=== PATIENT | male | born 1955 | race Caucasian/White ===

== ENCOUNTER 2018-10-28 09:38 | Day surgery (SDC) | payer OTHER ==
[2018-10-26 16:40] VITALS: BMI 33.9
[2018-10-28] MEDS ORDERED: LIDOCAINE HCL/PF 2% SDV 5ML VIAL ONE (11:03)
[2018-10-28] MEDS ORDERED: PROPOFOL 20 ML ONE ×6 (11:03→11:50)
[2018-10-28 17:43] VITALS: TEMP 98.2
[2018-10-28 17:48] VITALS: BP 118/80; PULSE 77
--- NOTE | 2018-11-06 15:50 | PATH ---
Surgical Pathology Report Patient Name: MARY CLEMENTE Med. Rec. #: [id number] /Age/Gender: 1955 (Age: 63) / M Account: [id number] Location: [facility] Taken: 10/28/2018 Received: 10/28/2018 Reported: 11/06/2018 Physicians: Kim Resendez M.D. Specimen(s) Received A: POLYPECTOMY PROXIMAL TRANSVERSE COLON B: POLYP PROXIMAL TRANSVERSE COLON 5-6 mm C: POLYPECTOMY JUNCTIONAL OF ASCENDING COLON & CECUM Clinical History Screening, Polyps Final Diagnosis A. proximal transverse colon, polyp, hot snare polypectomy: Tubular adenoma. B. proximal transverse colon 5-6 mm, polyp, biopsy : Tubular adenoma. C. junction of Ascending colon and cecum, polyp, hot snare polypectomy: Tubular adenoma with high-grade dysplasia. (See note). Note: Case discussed with Dr. Resendez on 11/03/18. Electronically Signed Maria Eugenia Drew M.D. Gross Description A. Received in formalin, labeled "hot snare polypectomy, proximal transverse colon" is a koch, irregular portion of soft tissue measuring 0.3 cm. in greatest dimension. The specimen is submitted in toto in one cassette. B. Received in formalin, labeled "polyp proximal transverse colon 5-6 mm" are four koch, irregular portions of soft tissue ranging from 0.1-0.2 cm. in greatest dimension. The specimens are submitted in toto in one cassette. C. Received in formalin, labeled, "hot snare polypectomy junction of ascending colon and cecum" are three portions of dark koch polyp ranging from 0.5-1.2 cm in greatest dimension. No definite stalk is identified. Entirely submitted in two cassettes with the largest polypoid fragment trisected( #2). AE/10/29/2018 ebram/10/29/2018
== END 2018-10-28 13:37 | disposition home or self-care (01) ==
LOC: FASU-ENDO 09:38
PROVIDERS: ATTEND Internal Medicine Gastroenterology
PROC: 0DBL8ZX Excision of Transverse Colon, Via Natural or Artificial Opening Endoscopic, Diagnostic (ICD-10-PCS; 2018-10-28)
PROC: 0DBL8ZX Excision of Transverse Colon, Via Natural or Artificial Opening Endoscopic, Diagnostic (ICD-10-PCS; 2018-10-28)
PROC: 0DBK8ZX Excision of Ascending Colon, Via Natural or Artificial Opening Endoscopic, Diagnostic (ICD-10-PCS; principal; 2018-10-28 11:12)
DX: Z12.11 Encounter for screening for malignant neoplasm of colon (principal); K57.30 Diverticulosis of large intestine without perforation or abscess without bleeding; D12.2 Benign neoplasm of ascending colon; D12.3 Benign neoplasm of transverse colon; K64.8 Other hemorrhoids
CPT/HCPCS: 88305-TC

== ENCOUNTER 2019-01-20 10:41 | Day surgery (SDC) | payer OTHER ==
[2019-01-18 12:14] VITALS: BMI 33.9
[2019-01-20] MEDS ORDERED: PROPOFOL 20 ML ONE ×2 (10:54)
[2019-01-20 12:21] VITALS: TEMP 98
[2019-01-20 12:46] VITALS: BP 134/76; PULSE 67
--- NOTE | 2019-01-22 15:45 | PATH ---
Surgical Pathology Report Patient Name: MARY CLEMENTE Med. Rec. #: [id number] /Age/Gender: 1955 (Age: 63) / M Account: [id number] Location: [facility] Taken: 01/20/2019 Received: 01/20/2019 Reported: 01/22/2019 Physicians: Kim Resendez M.D. Specimen(s) Received A: POLYPECTOMY PROXIMAL TRANSVERSE COLON B: POLYPECTOMY TRANSVERSE COLON Clinical History Surveillance colonoscopy Postoperative diagnosis: Colon polyps, diverticulosis Final Diagnosis A. PROXIMAL TRANSVERSE COLON, POLYPECTOMY: TUBULAR ADENOMA. NO HIGH GRADE DYSPLASIA IDENTIFIED. B. TRANSVERSE COLON, POLYPECTOMY: TUBULAR ADENOMA. Electronically Signed Kim Weiss M.D. Gross Description A. Received in formalin labeled "polypectomy proximal transverse," is a 1.5 x 1.1 x 0.6 cm koch, polypoid portion of soft tissue. The specimen is bisected and entirely submitted in one cassette. B. Received in formalin, labeled "polypectomy transverse colon" are 4 koch, irregular to polypoid portions of soft tissue ranging from 0.2-1.0 cm. in greatest dimension. The specimens are submitted in toto in one cassette. 01/21/201901/21/2019
== END 2019-01-20 12:45 | disposition home or self-care (01) ==
LOC: FASU-ENDO 10:41
PROVIDERS: ATTEND Internal Medicine Gastroenterology
PROC: 0DBL8ZX Excision of Transverse Colon, Via Natural or Artificial Opening Endoscopic, Diagnostic (ICD-10-PCS; principal; 2019-01-20 11:19)
DX: Z09 Encounter for follow-up examination after completed treatment for conditions other than malignant neoplasm (principal); Z86.010 Personal history of colon polyps; K57.30 Diverticulosis of large intestine without perforation or abscess without bleeding; D12.3 Benign neoplasm of transverse colon; K64.8 Other hemorrhoids; I10 Essential (primary) hypertension; F03.90 Unspecified dementia, unspecified severity, without behavioral disturbance, psychotic disturbance, mood disturbance, and anxiety; F20.9 Schizophrenia, unspecified; D69.6 Thrombocytopenia, unspecified; D50.9 Iron deficiency anemia, unspecified; F31.9 Bipolar disorder, unspecified
CPT/HCPCS: 88305-TC

== ENCOUNTER 2021-11-20 17:14 | Emergency (ER) | payer OTHER ==
[2021-11-20] MEDS ORDERED: SODIUM CHLORIDE 1,000 ML IV STA ×2 (18:02→20:36)
[2021-11-20 18:08] VITALS: BMI 36.6
[2021-11-20 18:39] LABS: BASO % 0.2 % (0-2.0); EOS % 0.4 % (0-4.5); HEMATOCRIT 35.4 % (35.4-49); HEMOGLOBIN 11.8 GM/dL (11.7-16.9); LYMPH % 15.4 % (8-40); MCH 31.6 pg (25.7-33.7); MCHC 33.2 g/dl (32.0-35.9); MEAN CELL VOLUME 95.3 fl (80-96); MEAN PLT VOLUME 8.5 fl (7.5-11.1); MONO % 5.8 % (3.8-10.2); NEUT % 78.2 % (42.8-82.8); PLATELET COUNT 104 10^3/uL (134-434); RBC 3.72 M/mm3 (4.00-5.60); RDW 15.6 % (11.9-15.9); WHITE BLOOD COUNT 7.1 K/mm3 (4.0-10.0)
[2021-11-20 18:47] LABS: INR 1.18 (0.83-1.09); PROTHROMBIN TIME (PATIENT) 13.6 SEC (9.7-13.0)
[2021-11-20 18:49] LABS: ACTIVATED PTT 26.1 SECONDS (25.2-36.5)
[2021-11-20] MEDS ORDERED: ACETAMINOPHEN 1000 MG/100 ML BAG IVPB ONE (19:24)
[2021-11-20] MEDS ORDERED: ACETAMINOPHEN INJECTION 100 ML IVPB ONE (19:29)
[2021-11-20 19:54] LABS: CALCIUM 8.8 mg/dL (8.5-10.1)
[2021-11-20 19:55] LABS: ALBUMIN 3.8 g/dl (3.4-5.0)
[2021-11-20 19:58] LABS: CREATININE 1.5 mg/dL (0.55-1.3)
[2021-11-20 19:59] LABS: BILIRUBIN,TOTAL 0.6 mg/dL (0.2-1); TOT PROT 6.5 g/dl (6.4-8.2)
[2021-11-20] MEDS ORDERED: ONDANSETRON 4 MG/2 ML VIAL IVPUSH ONE (20:33)
[2021-11-20] MEDS ORDERED: ONDANSETRON 4 MG/2 ML VIAL ONE (20:35)
[2021-11-21 00:03] LABS: BASO % 0.1 % (0-2.0); HEMATOCRIT 27.4 % (35.4-49); HEMOGLOBIN 9.1 GM/dL (11.7-16.9); LYMPH % 8.1 % (8-40); MCH 31.7 pg (25.7-33.7); MCHC 33.3 g/dl (32.0-35.9); MEAN CELL VOLUME 95.4 fl (80-96); MEAN PLT VOLUME 7.7 fl (7.5-11.1); MONO % 5.8 % (3.8-10.2); PLATELET COUNT 151 10^3/uL (134-434); RBC 2.88 M/mm3 (4.00-5.60); RDW 15.8 % (11.9-15.9); WHITE BLOOD COUNT 11.5 K/mm3 (4.0-10.0)
[2021-11-21 01:11] VITALS: RESP 20
[2021-11-21 02:10] VITALS: BP 122/82; PULSE 113; TEMP 97.8
== END 2021-11-21 02:10 | disposition short-term general hospital (02) ==
LOC: JER 17:14
PROC: 3E033GC Introduction of Other Therapeutic Substance into Peripheral Vein, Percutaneous Approach (ICD-10-PCS; principal; 2021-11-20)
DX: R55 Syncope and collapse (principal)
CPT/HCPCS: 36415; 36430; 70450-TC; 71046-TC-FY; 71275-TC; 72125-TC; 72170-TC-FY; 73030-TC-LT-FY; 74176-TC; 80053; 84484; 85025; 85379; 85610; 85730; 86850; 86900; 86901; 86922; 93005; 93010; 99285-25; C9803-CS; P9058; Q9967; U0003; U0005

== ENCOUNTER 2022-11-23 18:44 | Inpatient (IN) | payer OTHER ==
[2022-11-23 18:51] VITALS: BMI 32.5
[2022-11-23] MEDS ORDERED: LIDOCAINE 5% TOPICAL PATCH TP ONE (19:43)
[2022-11-23] MEDS ORDERED: LIDOCAINE 4% PATCH TP ONE (19:51)
[2022-11-23 20:30] LABS: BASO % 0.2 % (0-2.0); EOS % 0.1 % (0-4.5); HEMATOCRIT 21.9 % (35.4-49); LYMPH % 6.4 % (8-40); MCH 22.3 pg (25.7-33.7); MCHC 31.3 g/dl (32.0-35.9); MEAN CELL VOLUME 71.3 fl (80-96); MEAN PLT VOLUME 7.8 fl (7.5-11.1); MONO % 5.8 % (3.8-10.2); NEUT % 87.5 % (42.8-82.8); PLATELET COUNT 152 10^3/uL (134-434); RBC 3.07 M/mm3 (4.00-5.60); RDW 17.3 % (11.9-15.9); WHITE BLOOD COUNT 6.1 K/mm3 (4.0-10.0)
[2022-11-23 20:33] LABS: HEMOGLOBIN 6.8 GM/dL (11.7-16.9)
[2022-11-23 20:47] LABS: POTASSIUM 4.2 mmol/L (3.5-5.1)
[2022-11-23 20:50] LABS: ALBUMIN 3.5 g/dl (3.4-5.0); BLOOD UREA NITROGEN 13.1 mg/dL (7-18); CALCIUM 8.1 mg/dL (8.5-10.1)
[2022-11-23 20:53] LABS: CREATININE 1.2 mg/dL (0.55-1.3)
[2022-11-23 20:55] LABS: BILIRUBIN,TOTAL 0.4 mg/dL (0.2-1)
[2022-11-23] MEDS ORDERED: ACETAMINOPHEN 500 MG TABLET (FP) PO ONE (20:59)
[2022-11-23 21:13] LABS: INR 1.06 (0.83-1.09); PROTHROMBIN TIME (PATIENT) 12.3 SEC (9.7-13.0)
[2022-11-23] MEDS ORDERED: ACETAMINOPHEN 500 MG TABLET (FP) ONE (21:13)
[2022-11-23 21:16] LABS: ACTIVATED PTT 21.8 SECONDS (25.2-36.5)
[2022-11-23] MEDS ORDERED: morphine CARPU-JECT 4 MG/1 ML DISP.SYRIN IVPUSH ONE (23:34)
[2022-11-23] MEDS ORDERED: morphine SULFATE 4 MG/ML VIAL ONE (23:38)
[2022-11-24] MEDS ORDERED: SENNOSIDES 8.6MG TABLET (FP) PO PRN (01:39)
[2022-11-24 06:04] LABS: BASO % 0.2 % (0-2.0); EOS % 0.2 % (0-4.5); HEMATOCRIT 23.3 % (35.4-49); HEMOGLOBIN 7.4 GM/dL (11.7-16.9); LYMPH % 12.4 % (8-40); MCH 23.2 pg (25.7-33.7); MCHC 31.6 g/dl (32.0-35.9); MEAN CELL VOLUME 73.5 fl (80-96); MEAN PLT VOLUME 7.7 fl (7.5-11.1); NEUT % 79.2 % (42.8-82.8); PLATELET COUNT 152 10^3/uL (134-434); RBC 3.17 M/mm3 (4.00-5.60); RDW 17.7 % (11.9-15.9); WHITE BLOOD COUNT 5.9 K/mm3 (4.0-10.0)
[2022-11-24 06:25] LABS: POTASSIUM 4.5 mmol/L (3.5-5.1)
[2022-11-24 06:28] LABS: BLOOD UREA NITROGEN 11.2 mg/dL (7-18); MAGNESIUM 1.9 mg/dL (1.8-2.4)
[2022-11-24 06:32] LABS: CREATININE 1.1 mg/dL (0.55-1.3)
[2022-11-24] MEDS ORDERED: LIDOCAINE PATCH REMOVAL MC SCH (08:00)
[2022-11-24] MEDS ORDERED: ACETAMINOPHEN 1000 MG/100 ML BAG IVPB PRN (08:21)
[2022-11-24] MEDS: TAMSULOSIN HCL 0.4 MG CAP PO SCH (08:30)
[2022-11-24] MEDS: PANTOPRAZOLE 20 MG TABLET PO SCH (08:30)
[2022-11-24] MEDS ORDERED: LIDOCAINE 4% PATCH TP ONE (08:31)
[2022-11-24 09:50] LABS: PHOSPHOROUS 2.7 mg/dL (2.5-4.9)
[2022-11-24] MEDS ORDERED: BISACODYL 5 MG PO SCH (10:00)
[2022-11-24] MEDS ORDERED: HYDROCHLOROTHIAZIDE 25 MG TABLET (FP) PO SCH (10:00)
[2022-11-24] MEDS ORDERED: FOLIC ACID 1 MG TABLET (FP) PO SCH (10:00)
[2022-11-24] MEDS: THIAMINE HCL 100 MG TABLET (FP) PO SCH (10:10)
[2022-11-24] MEDS: FERROUS SO4 325 MG TABLET (FP) PO SCH (10:10)
[2022-11-24] MEDS: FOLIC ACID 1 MG TABLET (FP) PO SCH (10:10)
[2022-11-24] MEDS: LISINOPRIL 10 MG TABLET PO SCH (10:10)
[2022-11-24] MEDS ORDERED: ACETAMINOPHEN 325 MG TABLET (FP) PO PRN (11:50)
[2022-11-24] MEDS ORDERED: IRON SUCROSE INJECTION 200 MG in SODIUM CHLORIDE 90 ML IVPB ONE (12:30)
[2022-11-24] MEDS ORDERED: ACETAMINOPHEN INJECTION 100 ML IVPB ONE (13:11)
[2022-11-24] MEDS ORDERED: oxyCODONE HCL 5 MG TABLET ONE (16:45)
[2022-11-24] MEDS: oxyCODONE HCL 5 MG TABLET PO PRN (16:50)
[2022-11-24 17:05] LABS: BASO % 0.3 % (0-2.0); EOS % 0.3 % (0-4.5); HEMATOCRIT 26.3 % (35.4-49); HEMOGLOBIN 8.6 GM/dL (11.7-16.9); MCH 23.2 pg (25.7-33.7); MCHC 32.6 g/dl (32.0-35.9); MEAN CELL VOLUME 71.2 fl (80-96); MEAN PLT VOLUME 7.2 fl (7.5-11.1); MONO % 8.2 % (3.8-10.2); NEUT % 78.2 % (42.8-82.8); PLATELET COUNT 184 10^3/uL (134-434); RBC 3.69 M/mm3 (4.00-5.60); RDW 18.4 % (11.9-15.9); WHITE BLOOD COUNT 7.2 K/mm3 (4.0-10.0)
[2022-11-24] MEDS: morphine SULFATE 4 MG/ML VIAL IVPUSH PRN (20:42)
[2022-11-24] MEDS: MELATONIN 5 MG TABLETS PO SCH (21:13)
[2022-11-24] MEDS: BISACODYL 5 MG TABLET.DR (FP) PO SCH (21:14)
[2022-11-25] MEDS: oxyCODONE HCL 5 MG TABLET PO PRN ×3 (01:07→20:44)
[2022-11-25] MEDS: morphine SULFATE 4 MG/ML VIAL IVPUSH PRN ×3 (04:22→22:01)
[2022-11-25] MEDS: PANTOPRAZOLE 20 MG TABLET PO SCH (06:05)
[2022-11-25 07:38] LABS: BASO % 0.3 % (0-2.0); EOS % 0.3 % (0-4.5); HEMATOCRIT 24.9 % (35.4-49); HEMOGLOBIN 7.9 GM/dL (11.7-16.9); LYMPH % 12.2 % (8-40); MCHC 31.6 g/dl (32.0-35.9); MEAN CELL VOLUME 72.8 fl (80-96); MONO % 9.7 % (3.8-10.2); NEUT % 77.5 % (42.8-82.8); PLATELET COUNT 177 10^3/uL (134-434); RBC 3.42 M/mm3 (4.00-5.60); RDW 18.6 % (11.9-15.9); WHITE BLOOD COUNT 7.7 K/mm3 (4.0-10.0)
[2022-11-25 07:55] LABS: POTASSIUM 4.3 mmol/L (3.5-5.1)
[2022-11-25 08:01] LABS: ALBUMIN 3.4 g/dl (3.4-5.0); BLOOD UREA NITROGEN 13.3 mg/dL (7-18); CALCIUM 8.2 mg/dL (8.5-10.1)
[2022-11-25 08:06] LABS: BILIRUBIN,TOTAL 0.6 mg/dL (0.2-1); TOT PROT 6.8 g/dl (6.4-8.2)
[2022-11-25] MEDS: THIAMINE HCL 100 MG TABLET (FP) PO SCH (09:48)
[2022-11-25] MEDS: FOLIC ACID 1 MG TABLET (FP) PO SCH (09:48)
[2022-11-25] MEDS: LISINOPRIL 10 MG TABLET PO SCH (09:49)
[2022-11-25] MEDS: BISACODYL 5 MG TABLET.DR (FP) PO SCH ×2 (09:49→22:01)
[2022-11-25] MEDS: TAMSULOSIN HCL 0.4 MG CAP PO SCH (09:50)
[2022-11-25] MEDS ORDERED: IRON SUCROSE INJECTION 200 MG in SODIUM CHLORIDE 90 ML IVPB ONE (11:00)
[2022-11-25] MEDS: MELATONIN 5 MG TABLETS PO SCH (23:05)
[2022-11-26 04:34] LABS: ALLENS TEST POSITIVE; ARTERIAL BLD GAS O2 SATURATION 95.8 % (95-98); ARTERIAL BLOOD GAS BASE EXCESS 1.8 mmol/L (-2-2); ARTERIAL BLOOD GAS PO2 75.7 mmHg (80-100); ARTERIAL BLOOD GAS pH 7.448 (7.350-7.450)
[2022-11-26] MEDS: PANTOPRAZOLE 20 MG TABLET PO SCH (06:33)
[2022-11-26] MEDS: oxyCODONE HCL 5 MG TABLET PO PRN (07:01)
[2022-11-26 07:30] LABS: BASO % 0.2 % (0-2.0); HEMATOCRIT 25.2 % (35.4-49); HEMOGLOBIN 8.1 GM/dL (11.7-16.9); LYMPH % 7.5 % (8-40); MCH 23.3 pg (25.7-33.7); MCHC 32.2 g/dl (32.0-35.9); MEAN CELL VOLUME 72.4 fl (80-96); MEAN PLT VOLUME 8.1 fl (7.5-11.1); MONO % 9.4 % (3.8-10.2); NEUT % 82.9 % (42.8-82.8); PLATELET COUNT 209 10^3/uL (134-434); RBC 3.48 M/mm3 (4.00-5.60); WHITE BLOOD COUNT 10.8 K/mm3 (4.0-10.0)
[2022-11-26 07:45] LABS: POTASSIUM 4.3 mmol/L (3.5-5.1)
[2022-11-26 07:46] LABS: CALCIUM 8.6 mg/dL (8.5-10.1)
[2022-11-26 07:47] LABS: BLOOD UREA NITROGEN 21.1 mg/dL (7-18)
[2022-11-26 07:50] LABS: CREATININE 1.1 mg/dL (0.55-1.3)
[2022-11-26] MEDS ORDERED: ALBUTEROL SO4 2.5/IPRATROPIUM 0.5 INH SOL 3 ML VIAL.NEB. NEB PRN (08:19)
[2022-11-26 09:10] LABS: MAGNESIUM 1.8 mg/dL (1.8-2.4)
[2022-11-26 09:13] LABS: PHOSPHOROUS 2.6 mg/dL (2.5-4.9)
[2022-11-26 09:18] LABS: N-TERMINAL BNP 66.8 pg/ml (5-125)
[2022-11-26] MEDS: TAMSULOSIN HCL 0.4 MG CAP PO SCH (09:25)
[2022-11-26] MEDS: FERROUS SO4 325 MG TABLET (FP) PO SCH (10:24)
[2022-11-26] MEDS: FOLIC ACID 1 MG TABLET (FP) PO SCH (10:24)
[2022-11-26] MEDS: QUEtiapine FUMARATE 100 MG TABLET (FP) PO SCH ×3 (10:25→23:03)
[2022-11-26] MEDS: QUEtiapine FUMARATE 25 MG TABLET PO SCH ×2 (10:25→10:26)
[2022-11-26] MEDS: THIAMINE HCL 100 MG TABLET (FP) PO SCH (10:25)
[2022-11-26] MEDS: BISACODYL 5 MG TABLET.DR (FP) PO SCH ×2 (10:26→23:04)
[2022-11-26] MEDS: LISINOPRIL 10 MG TABLET PO SCH (10:26)
[2022-11-26] MEDS ORDERED: HALOPERIDOL LACTATE 5 MG/ML IM ONE ×2 (12:16→12:20)
[2022-11-26] MEDS: ENOXAPARIN NA (PORCINE) 40 MG/0.4 ML DISP.SYRIN SQ SCH (14:03)
[2022-11-26] MEDS ORDERED: ACETAMINOPHEN 325 MG TABLET (FP) PO PRN (21:29)
[2022-11-26] MEDS: morphine SULFATE 4 MG/ML VIAL IVPUSH PRN (23:02)
[2022-11-26] MEDS: MELATONIN 5 MG TABLETS PO SCH (23:04)
[2022-11-27] MEDS: CEFTRIAXONE 1 GM in DEXTROSE 5%-WATER - 50 ML IVPB SCH ×2 (02:34→09:04)
[2022-11-27] MEDS: PANTOPRAZOLE 20 MG TABLET PO SCH (06:29)
[2022-11-27 07:16] LABS: BASO % 0.4 % (0-2.0); EOS % 0.5 % (0-4.5); HEMATOCRIT 24.2 % (35.4-49); HEMOGLOBIN 7.5 GM/dL (11.7-16.9); LYMPH % 15.1 % (8-40); MCH 23.1 pg (25.7-33.7); MCHC 31.2 g/dl (32.0-35.9); MEAN CELL VOLUME 74.2 fl (80-96); MEAN PLT VOLUME 7.9 fl (7.5-11.1); MONO % 10.7 % (3.8-10.2); NEUT % 73.3 % (42.8-82.8); PLATELET COUNT 144 10^3/uL (134-434); RBC 3.26 M/mm3 (4.00-5.60); RDW 19.1 % (11.9-15.9); WHITE BLOOD COUNT 5.2 K/mm3 (4.0-10.0)
[2022-11-27 07:30] LABS: POTASSIUM 3.8 mmol/L (3.5-5.1)
[2022-11-27 07:32] LABS: CALCIUM 8.3 mg/dL (8.5-10.1)
[2022-11-27 07:33] LABS: BLOOD UREA NITROGEN 15.2 mg/dL (7-18); MAGNESIUM 2.1 mg/dL (1.8-2.4)
[2022-11-27] MEDS: BISACODYL 5 MG TABLET.DR (FP) PO SCH ×2 (09:04→22:23)
[2022-11-27] MEDS: THIAMINE HCL 100 MG TABLET (FP) PO SCH (09:04)
[2022-11-27] MEDS: QUEtiapine FUMARATE 100 MG TABLET (FP) PO SCH ×2 (09:04→22:23)
[2022-11-27] MEDS: TAMSULOSIN HCL 0.4 MG CAP PO SCH (09:04)
[2022-11-27] MEDS: FOLIC ACID 1 MG TABLET (FP) PO SCH (09:04)
[2022-11-27] MEDS: ENOXAPARIN NA (PORCINE) 40 MG/0.4 ML DISP.SYRIN SQ SCH (09:05)
[2022-11-27] MEDS: LISINOPRIL 10 MG TABLET PO SCH (09:05)
[2022-11-27] MEDS: morphine SULFATE 4 MG/ML VIAL IVPUSH PRN (10:09)
[2022-11-27] MEDS: HALOPERIDOL LACTATE 5 MG/ML IM PRN ×2 (13:08→21:30)
[2022-11-27] MEDS ORDERED: ACETAMINOPHEN 1000 MG/100 ML BAG IVPB PRN (14:53)
[2022-11-27] MEDS: MELATONIN 5 MG TABLETS PO SCH (22:22)
[2022-11-27] MEDS: QUEtiapine FUMARATE 25 MG TABLET PO SCH (22:23)
[2022-11-27] MEDS: oxyCODONE HCL 5 MG TABLET PO PRN (22:25)
[2022-11-28] MEDS: PANTOPRAZOLE 20 MG TABLET PO SCH (06:11)
[2022-11-28 07:43] LABS: BASO % 0.4 % (0-2.0); EOS % 1.8 % (0-4.5); HEMATOCRIT 23.3 % (35.4-49); HEMOGLOBIN 7.3 GM/dL (11.7-16.9); LYMPH % 19.1 % (8-40); MCH 23.5 pg (25.7-33.7); MCHC 31.5 g/dl (32.0-35.9); MEAN CELL VOLUME 74.5 fl (80-96); MEAN PLT VOLUME 8.1 fl (7.5-11.1); MONO % 8.9 % (3.8-10.2); NEUT % 69.8 % (42.8-82.8); PLATELET COUNT 145 10^3/uL (134-434); RBC 3.12 M/mm3 (4.00-5.60); RDW 19.3 % (11.9-15.9)
[2022-11-28 08:58] LABS: ALBUMIN 2.8 g/dl (3.4-5.0); BLOOD UREA NITROGEN 19.2 mg/dL (7-18); CALCIUM 8.1 mg/dL (8.5-10.1); MAGNESIUM 2.2 mg/dL (1.8-2.4)
[2022-11-28 09:01] LABS: CREATININE 0.9 mg/dL (0.55-1.3)
[2022-11-28 09:02] LABS: BILIRUBIN,TOTAL 0.6 mg/dL (0.2-1); TOT PROT 6.2 g/dl (6.4-8.2)
[2022-11-28] MEDS: CEFTRIAXONE 1 GM in DEXTROSE 5%-WATER - 50 ML IVPB SCH (09:36)
[2022-11-28] MEDS: QUEtiapine FUMARATE 100 MG TABLET (FP) PO SCH ×2 (09:37→21:11)
[2022-11-28] MEDS: FOLIC ACID 1 MG TABLET (FP) PO SCH (09:37)
[2022-11-28] MEDS: FERROUS SO4 325 MG TABLET (FP) PO SCH (09:37)
[2022-11-28] MEDS: TAMSULOSIN HCL 0.4 MG CAP PO SCH (09:37)
[2022-11-28] MEDS: LISINOPRIL 10 MG TABLET PO SCH (09:37)
[2022-11-28] MEDS: ENOXAPARIN NA (PORCINE) 40 MG/0.4 ML DISP.SYRIN SQ SCH (09:38)
[2022-11-28] MEDS: BISACODYL 5 MG TABLET.DR (FP) PO SCH ×2 (09:38→21:18)
[2022-11-28] MEDS: THIAMINE HCL 100 MG TABLET (FP) PO SCH (09:38)
[2022-11-28] MEDS: QUEtiapine FUMARATE 25 MG TABLET PO SCH ×2 (09:38→21:11)
[2022-11-28] MEDS: oxyCODONE HCL 5 MG TABLET PO PRN (14:07)
[2022-11-28] MEDS: MELATONIN 5 MG TABLETS PO SCH (21:18)
[2022-11-29] MEDS: PANTOPRAZOLE 20 MG TABLET PO SCH (06:08)
[2022-11-29 08:16] LABS: BASO % 0.6 % (0-2.0); EOS % 2.6 % (0-4.5); HEMATOCRIT 25.6 % (35.4-49); HEMOGLOBIN 8.3 GM/dL (11.7-16.9); MCH 23.7 pg (25.7-33.7); MCHC 32.3 g/dl (32.0-35.9); MEAN CELL VOLUME 73.2 fl (80-96); MEAN PLT VOLUME 8.3 fl (7.5-11.1); NEUT % 69.8 % (42.8-82.8); PLATELET COUNT 184 10^3/uL (134-434); RDW 20.1 % (11.9-15.9)
[2022-11-29 08:54] LABS: CALCIUM 8.3 mg/dL (8.5-10.1)
[2022-11-29 08:55] LABS: ALBUMIN 3.1 g/dl (3.4-5.0); BLOOD UREA NITROGEN 24.6 mg/dL (7-18); MAGNESIUM 2.2 mg/dL (1.8-2.4)
[2022-11-29 08:57] LABS: CREATININE 1.1 mg/dL (0.55-1.3)
[2022-11-29 08:58] LABS: BILIRUBIN,TOTAL 0.6 mg/dL (0.2-1); TOT PROT 6.8 g/dl (6.4-8.2)
[2022-11-29] MEDS: LISINOPRIL 10 MG TABLET PO SCH (10:40)
[2022-11-29] MEDS: THIAMINE HCL 100 MG TABLET (FP) PO SCH (10:40)
[2022-11-29] MEDS: TAMSULOSIN HCL 0.4 MG CAP PO SCH (10:40)
[2022-11-29] MEDS: ENOXAPARIN NA (PORCINE) 40 MG/0.4 ML DISP.SYRIN SQ SCH (10:40)
[2022-11-29] MEDS: QUEtiapine FUMARATE 25 MG TABLET PO SCH (10:40)
[2022-11-29] MEDS: BISACODYL 5 MG TABLET.DR (FP) PO SCH ×2 (10:40→22:13)
[2022-11-29] MEDS: FOLIC ACID 1 MG TABLET (FP) PO SCH (10:40)
[2022-11-29] MEDS: QUEtiapine FUMARATE 100 MG TABLET (FP) PO SCH (10:40)
[2022-11-29] MEDS: CEFTRIAXONE 1 GM in DEXTROSE 5%-WATER - 50 ML IVPB SCH (10:41)
[2022-11-29] MEDS: oxyCODONE HCL 5 MG TABLET PO PRN ×2 (17:26→22:13)
[2022-11-29] MEDS: MELATONIN 5 MG TABLETS PO SCH (22:13)
[2022-11-29] MEDS: OLANZapine 10 MG TABLET PO SCH (22:16)
[2022-11-30] MEDS: PANTOPRAZOLE 20 MG TABLET PO SCH (06:06)
[2022-11-30 08:11] LABS: POTASSIUM 4.3 mmol/L (3.5-5.1)
[2022-11-30 08:17] LABS: BLOOD UREA NITROGEN 20.1 mg/dL (7-18)
[2022-11-30 08:38] LABS: EOS % 3.6 % (0-4.5); HEMATOCRIT 25.1 % (35.4-49); HEMOGLOBIN 8.2 GM/dL (11.7-16.9); LYMPH % 23.9 % (8-40); MCH 23.7 pg (25.7-33.7); MCHC 32.6 g/dl (32.0-35.9); MEAN CELL VOLUME 72.8 fl (80-96); NEUT % 61.5 % (42.8-82.8); RBC 3.45 M/mm3 (4.00-5.60); RDW 20.2 % (11.9-15.9)
[2022-11-30 08:39] LABS: MEAN PLT VOLUME 8.2 fl (7.5-11.1); PLATELET COUNT 183 10^3/uL (134-434); WHITE BLOOD COUNT 5.5 K/mm3 (4.0-10.0)
[2022-11-30] MEDS: TAMSULOSIN HCL 0.4 MG CAP PO SCH (09:01)
[2022-11-30] MEDS: BISACODYL 5 MG TABLET.DR (FP) PO SCH ×2 (09:01→21:12)
[2022-11-30] MEDS: FOLIC ACID 1 MG TABLET (FP) PO SCH (09:02)
[2022-11-30] MEDS: ENOXAPARIN NA (PORCINE) 40 MG/0.4 ML DISP.SYRIN SQ SCH (09:02)
[2022-11-30] MEDS: OLANZapine 10 MG TABLET PO SCH ×2 (09:02→21:12)
[2022-11-30] MEDS: FERROUS SO4 325 MG TABLET (FP) PO SCH (09:02)
[2022-11-30] MEDS: LISINOPRIL 10 MG TABLET PO SCH (09:02)
[2022-11-30] MEDS: oxyCODONE HCL 5 MG TABLET PO PRN ×3 (09:02→23:21)
[2022-11-30] MEDS: CEFTRIAXONE 1 GM in DEXTROSE 5%-WATER - 50 ML IVPB SCH (09:07)
[2022-11-30] MEDS: THIAMINE HCL 100 MG TABLET (FP) PO SCH (09:07)
[2022-11-30] MEDS: POLYETHYLENE GLYCOL (HEALTHYLAX) 3350 17 GM PACKET PO PRN (13:28)
[2022-11-30] MEDS: MELATONIN 5 MG TABLETS PO SCH (21:12)
[2022-12-01] MEDS: PANTOPRAZOLE 20 MG TABLET PO SCH (06:01)
[2022-12-01 08:52] LABS: POTASSIUM 4.3 mmol/L (3.5-5.1)
[2022-12-01 08:54] LABS: CALCIUM 8.6 mg/dL (8.5-10.1)
[2022-12-01 08:55] LABS: ALBUMIN 3.2 g/dl (3.4-5.0); BLOOD UREA NITROGEN 18.4 mg/dL (7-18)
[2022-12-01 08:58] LABS: CREATININE 1.1 mg/dL (0.55-1.3)
[2022-12-01 09:01] LABS: BILIRUBIN,TOTAL 0.5 mg/dL (0.2-1); TOT PROT 7.4 g/dl (6.4-8.2)
[2022-12-01] MEDS: BISACODYL 5 MG TABLET.DR (FP) PO SCH ×2 (09:42→22:57)
[2022-12-01] MEDS: OLANZapine 10 MG TABLET PO SCH ×2 (09:42→22:57)
[2022-12-01] MEDS: THIAMINE HCL 100 MG TABLET (FP) PO SCH (09:42)
[2022-12-01] MEDS: TAMSULOSIN HCL 0.4 MG CAP PO SCH (09:43)
[2022-12-01] MEDS: ENOXAPARIN NA (PORCINE) 40 MG/0.4 ML DISP.SYRIN SQ SCH (09:44)
[2022-12-01] MEDS: LISINOPRIL 10 MG TABLET PO SCH (09:44)
[2022-12-01] MEDS: FOLIC ACID 1 MG TABLET (FP) PO SCH (09:44)
[2022-12-01] MEDS: CEFTRIAXONE 1 GM in DEXTROSE 5%-WATER - 50 ML IVPB SCH (09:44)
[2022-12-01] MEDS: POLYETHYLENE GLYCOL (HEALTHYLAX) 3350 17 GM PACKET PO PRN (10:00)
[2022-12-01] MEDS: oxyCODONE HCL 5 MG TABLET PO PRN (15:35)
[2022-12-01] MEDS: MELATONIN 5 MG TABLETS PO SCH (22:57)
[2022-12-02] MEDS: PANTOPRAZOLE 20 MG TABLET PO SCH (06:26)
[2022-12-02 07:55] LABS: BASO % 1.1 % (0-2.0); EOS % 4.1 % (0-4.5); HEMATOCRIT 25.1 % (35.4-49); LYMPH % 19.5 % (8-40); MCH 23.5 pg (25.7-33.7); MEAN CELL VOLUME 73.5 fl (80-96); MEAN PLT VOLUME 7.8 fl (7.5-11.1); NEUT % 65.3 % (42.8-82.8); PLATELET COUNT 186 10^3/uL (134-434); RBC 3.41 M/mm3 (4.00-5.60); RDW 20.8 % (11.9-15.9); WHITE BLOOD COUNT 4.5 K/mm3 (4.0-10.0)
[2022-12-02 08:15] LABS: POTASSIUM 4.5 mmol/L (3.5-5.1)
[2022-12-02 08:18] LABS: CALCIUM 8.4 mg/dL (8.5-10.1)
[2022-12-02 08:19] LABS: BLOOD UREA NITROGEN 13.8 mg/dL (7-18)
[2022-12-02 08:50] LABS: ANISOCYTOSIS 2+
[2022-12-02] MEDS: TAMSULOSIN HCL 0.4 MG CAP PO SCH (09:02)
[2022-12-02] MEDS: THIAMINE HCL 100 MG TABLET (FP) PO SCH (09:03)
[2022-12-02] MEDS: BISACODYL 5 MG TABLET.DR (FP) PO SCH (09:03)
[2022-12-02] MEDS: LISINOPRIL 10 MG TABLET PO SCH (09:03)
[2022-12-02] MEDS: FERROUS SO4 325 MG TABLET (FP) PO SCH (09:03)
[2022-12-02] MEDS: ENOXAPARIN NA (PORCINE) 40 MG/0.4 ML DISP.SYRIN SQ SCH (09:03)
[2022-12-02] MEDS: FOLIC ACID 1 MG TABLET (FP) PO SCH (09:03)
[2022-12-02] MEDS: OLANZapine 10 MG TABLET PO SCH (09:04)
[2022-12-02] MEDS: POLYETHYLENE GLYCOL (HEALTHYLAX) 3350 17 GM PACKET PO PRN (09:07)
[2022-12-02 15:44] VITALS: BP 134/71; PULSE 108; RESP 19; TEMP 98.6
== END 2022-12-02 16:45 | disposition short-term general hospital (02) | DRG 312 ==
LOC: JER 18:44 → JERBED 11-24 00:08 → J4W 11-24 20:28 → OBSVTOIN 11-26 09:21 → J4W 11-27 20:57
PROVIDERS: ADMIT Internal Medicine; ATTEND Internal Medicine
PROC: 30233N1 Transfusion of Nonautologous Red Blood Cells into Peripheral Vein, Percutaneous Approach (ICD-10-PCS; principal; 2022-11-24)
DX: R55 Syncope and collapse (principal); J18.9 Pneumonia, unspecified organism; S22.42XA Multiple fractures of ribs, left side, initial encounter for closed fracture; J98.11 Atelectasis; K21.9 Gastro-esophageal reflux disease without esophagitis; D50.9 Iron deficiency anemia, unspecified; K59.00 Constipation, unspecified; F03.90 Unspecified dementia, unspecified severity, without behavioral disturbance, psychotic disturbance, mood disturbance, and anxiety; F39 Unspecified mood [affective] disorder; I10 Essential (primary) hypertension; N40.0 Benign prostatic hyperplasia without lower urinary tract symptoms; M79.645 Pain in left finger(s); R07.81 Pleurodynia; R41.82 Altered mental status, unspecified; R09.02 Hypoxemia; I45.19 Other right bundle-branch block; E66.9 Obesity, unspecified; Z68.32 Body mass index [BMI] 32.0-32.9, adult; W18.39XA Other fall on same level, initial encounter; Y92.098 Other place in other non-institutional residence as the place of occurrence of the external cause; Z87.820 Personal history of traumatic brain injury
CPT/HCPCS: 36415; 36430; 36600; 70450-TC; 71045-TC-FY; 71275-TC; 72125-TC; 73130-TC-LT-FY; 74174-TC; 80048; 80053; 80061; 82140; 82272; 82728; 82803; 83540; 83550; 83690; 83735; 83880; 84100; 84443; 84484; 85025; 85610; 85730; 86850; 86900; 86901; 86922; 87635; 93005; 93010; 93306-TC; 94010; 94640; 97116-GP; 97162-GP; 99285-25; G0378; J1756; P9058; Q9967

== ENCOUNTER 2022-12-02 20:04 | Observation (INO) | payer OTHER ==
[2022-12-02 20:22] VITALS: RESP 18; BMI 36.4
[2022-12-02] MEDS ORDERED: morphine CARPU-JECT 2 MG/1 ML DISP.SYRIN IVPUSH ONE (21:10)
[2022-12-02] MEDS ORDERED: ACETAMINOPHEN 1000 MG/100 ML BAG IVPB PRN (21:44)
[2022-12-02] MEDS ORDERED: MELATONIN 5 MG TABLETS PO SCH (22:00)
[2022-12-02] MEDS ORDERED: FERROUS SO4 325 MG TABLET (FP) ONE (22:50)
[2022-12-02] MEDS ORDERED: MELATONIN 5 MG TABLETS ONE (22:50)
[2022-12-02] MEDS: FERROUS SO4 325 MG TABLET (FP) PO SCH (23:25)
[2022-12-03] MEDS: OLANZapine 10 MG TABLET PO SCH ×2 (00:39→09:51)
[2022-12-03] MEDS: BISACODYL 5 MG TABLET.DR (FP) PO SCH ×2 (00:39→09:50)
[2022-12-03] MEDS ORDERED: MELATONIN 5 MG TABLETS PO PRN (03:05)
[2022-12-03] MEDS ORDERED: PANTOPRAZOLE 20 MG TABLET PO SCH (07:00)
[2022-12-03] MEDS: FERROUS SO4 325 MG TABLET (FP) PO SCH (09:51)
[2022-12-03] MEDS ORDERED: POTASSIUM CHLORIDE TABS 10 MEQ TABLET.ER (FP) PO SCH (10:00)
[2022-12-03] MEDS ORDERED: MULTIVITAMINS THER W-MINERALS COMBO TABLET (FP) PO SCH (10:00)
[2022-12-03] MEDS ORDERED: FOLIC ACID 1 MG TABLET (FP) PO SCH (10:00)
[2022-12-03] MEDS ORDERED: LISINOPRIL 10 MG TABLET PO SCH (10:00)
[2022-12-03] MEDS ORDERED: oxyCODONE HCL 5 MG TABLET PO PRN ×2 (11:42)
[2022-12-03 13:36] VITALS: BP 129/81; PULSE 104; TEMP 97.9
== END 2022-12-03 16:47 ==
LOC: JER 20:04 → JERBED 21:03 → J6S 12-03 03:29
PROVIDERS: ADMIT Internal Medicine; ATTEND Internal Medicine
PROC: 3E033NZ Introduction of Analgesics, Hypnotics, Sedatives into Peripheral Vein, Percutaneous Approach (ICD-10-PCS; principal; 2022-12-02)
DX: J18.9 Pneumonia, unspecified organism (principal); R10.9 Unspecified abdominal pain; I10 Essential (primary) hypertension; K21.9 Gastro-esophageal reflux disease without esophagitis; K59.00 Constipation, unspecified; N40.0 Benign prostatic hyperplasia without lower urinary tract symptoms; D50.9 Iron deficiency anemia, unspecified; Z87.820 Personal history of traumatic brain injury; R41.82 Altered mental status, unspecified; D64.9 Anemia, unspecified; M79.645 Pain in left finger(s)
CPT/HCPCS: 96374; 99285-25; G0378

== ENCOUNTER 2022-12-08 11:51 | Inpatient (IN) | payer OTHER ==
[2022-12-08 14:52] LABS: BASO % 1.2 % (0-2.0); EOS % 4.2 % (0-4.5); HEMATOCRIT 26.8 % (35.4-49); HEMOGLOBIN 8.3 GM/dL (11.7-16.9); LYMPH % 24.2 % (8-40); MCH 23.3 pg (25.7-33.7); MCHC 30.8 g/dl (32.0-35.9); MEAN CELL VOLUME 75.7 fl (80-96); MEAN PLT VOLUME 7.4 fl (7.5-11.1); MONO % 6.1 % (3.8-10.2); NEUT % 64.3 % (42.8-82.8); PLATELET COUNT 290 10^3/uL (134-434); RBC 3.54 M/mm3 (4.00-5.60); RDW 22.1 % (11.9-15.9); WHITE BLOOD COUNT 5.3 K/mm3 (4.0-10.0)
[2022-12-08 14:56] LABS: INR 1.16 (0.83-1.09); PROTHROMBIN TIME (PATIENT) 13.4 SEC (9.7-13.0)
[2022-12-08 15:14] LABS: POTASSIUM 4.7 mmol/L (3.5-5.1)
[2022-12-08 15:16] LABS: CALCIUM 8.2 mg/dL (8.5-10.1)
[2022-12-08 15:17] LABS: ALBUMIN 3.1 g/dl (3.4-5.0); BLOOD UREA NITROGEN 14.7 mg/dL (7-18)
[2022-12-08 15:21] LABS: TOT PROT 6.8 g/dl (6.4-8.2)
[2022-12-08 15:22] LABS: BILIRUBIN,TOTAL 0.3 mg/dL (0.2-1)
[2022-12-08 15:54] LABS: ANISOCYTOSIS 2+; MACROCYTOSIS 0; OVALOCYTE 2+; TEAR DROP CELLS 2+
[2022-12-09] MEDS: PANTOPRAZOLE 20 MG TABLET PO SCH (08:20)
[2022-12-09] MEDS: FERROUS SO4 325 MG TABLET (FP) PO SCH ×2 (08:20→18:57)
[2022-12-09] MEDS ORDERED: FENTANYL CITRATE/PF 50 MCG/ML VIAL ONE (09:23)
[2022-12-09] MEDS ORDERED: FENTANYL CITRATE/PF 50 MCG/ML VIAL IVPUSH ONE (10:10)
[2022-12-09 10:53] LABS: HEMATOCRIT 27.4 % (35.4-49); HEMOGLOBIN 8.9 GM/dL (11.7-16.9); MCH 24.1 pg (25.7-33.7); MCHC 32.4 g/dl (32.0-35.9); MEAN CELL VOLUME 74.3 fl (80-96); MEAN PLT VOLUME 7.8 fl (7.5-11.1); PLATELET COUNT 301 10^3/uL (134-434); RBC 3.68 M/mm3 (4.00-5.60); RDW 22.5 % (11.9-15.9); WHITE BLOOD COUNT 5.5 K/mm3 (4.0-10.0)
[2022-12-09 11:09] LABS: INR 1.11 (0.83-1.09); PROTHROMBIN TIME (PATIENT) 12.9 SEC (9.7-13.0)
[2022-12-09 11:20] LABS: POTASSIUM 4.6 mmol/L (3.5-5.1)
[2022-12-09 11:23] LABS: CALCIUM 8.4 mg/dL (8.5-10.1)
[2022-12-09 11:24] LABS: BLOOD UREA NITROGEN 18.1 mg/dL (7-18)
[2022-12-09 11:26] LABS: CREATININE 0.9 mg/dL (0.55-1.3)
[2022-12-09] MEDS: FOLIC ACID 1 MG TABLET (FP) PO SCH (11:50)
[2022-12-09] MEDS: LISINOPRIL 10 MG TABLET PO SCH (11:50)
[2022-12-09 14:18] LABS: ALBUMIN 3.4 g/dl (3.4-5.0)
[2022-12-09] MEDS ORDERED: IRON SUCROSE INJECTION 200 MG in SODIUM CHLORIDE 90 ML IVPB ONE (14:30)
[2022-12-09] MEDS: MELATONIN 5 MG TABLETS PO SCH (22:30)
[2022-12-09 23:41] VITALS: BMI 33.3
[2022-12-10] MEDS: PANTOPRAZOLE 20 MG TABLET PO SCH (06:43)
[2022-12-10 07:40] LABS: BASO % 0.8 % (0-2.0); EOS % 3.3 % (0-4.5); HEMATOCRIT 27.4 % (35.4-49); HEMOGLOBIN 8.4 GM/dL (11.7-16.9); LYMPH % 21.5 % (8-40); MCHC 30.6 g/dl (32.0-35.9); MEAN PLT VOLUME 7.7 fl (7.5-11.1); MONO % 7.2 % (3.8-10.2); NEUT % 67.2 % (42.8-82.8); PLATELET COUNT 288 10^3/uL (134-434); RBC 3.66 M/mm3 (4.00-5.60); RDW 22.8 % (11.9-15.9)
[2022-12-10 08:11] LABS: POTASSIUM 4.1 mmol/L (3.5-5.1)
[2022-12-10 08:14] LABS: CALCIUM 8.3 mg/dL (8.5-10.1)
[2022-12-10 08:15] LABS: ALBUMIN 2.9 g/dl (3.4-5.0); BLOOD UREA NITROGEN 18.8 mg/dL (7-18)
[2022-12-10 08:18] LABS: CREATININE 0.8 mg/dL (0.55-1.3)
[2022-12-10 08:20] LABS: BILIRUBIN,TOTAL 0.4 mg/dL (0.2-1); TOT PROT 6.5 g/dl (6.4-8.2)
[2022-12-10] MEDS: FERROUS SO4 325 MG TABLET (FP) PO SCH ×2 (08:28→17:44)
[2022-12-10] MEDS: FOLIC ACID 1 MG TABLET (FP) PO SCH (11:03)
[2022-12-10] MEDS: LISINOPRIL 10 MG TABLET PO SCH (11:04)
[2022-12-10] MEDS: MELATONIN 5 MG TABLETS PO SCH (21:20)
[2022-12-11] MEDS: PANTOPRAZOLE 20 MG TABLET PO SCH (06:11)
[2022-12-11] MEDS: FERROUS SO4 325 MG TABLET (FP) PO SCH ×2 (09:34→16:35)
[2022-12-11] MEDS: FOLIC ACID 1 MG TABLET (FP) PO SCH (09:34)
[2022-12-11] MEDS: LISINOPRIL 10 MG TABLET PO SCH (09:35)
[2022-12-11] MEDS: MELATONIN 5 MG TABLETS PO SCH (22:01)
[2022-12-11 22:50] VITALS: RESP 20
[2022-12-12] MEDS: PANTOPRAZOLE 20 MG TABLET PO SCH (06:12)
[2022-12-12] MEDS ORDERED: oxyCODONE HCL 5 MG TABLET PO PRN (09:13)
[2022-12-12] MEDS: FOLIC ACID 1 MG TABLET (FP) PO SCH (09:27)
[2022-12-12] MEDS: LISINOPRIL 10 MG TABLET PO SCH (09:27)
[2022-12-12] MEDS: FERROUS SO4 325 MG TABLET (FP) PO SCH (09:27)
[2022-12-12] MEDS ORDERED: LIDOCAINE 4% PATCH TP SCH (10:00)
[2022-12-12 13:29] VITALS: BP 128/82; PULSE 86; TEMP 98.2
[2022-12-12] MEDS ORDERED: LIDOCAINE PATCH REMOVAL MC SCH (22:00)
== END 2022-12-12 13:30 | disposition home or self-care (01) | DRG 186 ==
LOC: JER 11:51 → JERBED 18:12 → J8W 12-09 18:31
PROVIDERS: ADMIT Internal Medicine; ATTEND Nurse Practitioner Family
PROC: 0W9B30Z Drainage of Left Pleural Cavity with Drainage Device, Percutaneous Approach (ICD-10-PCS; principal; 2022-12-09)
PROC: 0B9P3ZX Drainage of Left Pleura, Percutaneous Approach, Diagnostic (ICD-10-PCS; 2022-12-09)
PROC: 0WPBX0Z Removal of Drainage Device from Left Pleural Cavity, External Approach (ICD-10-PCS; 2022-12-11)
DX: J94.8 Other specified pleural conditions (principal); S22.5XXA Flail chest, initial encounter for closed fracture; J98.11 Atelectasis; K21.9 Gastro-esophageal reflux disease without esophagitis; K59.00 Constipation, unspecified; F39 Unspecified mood [affective] disorder; N40.0 Benign prostatic hyperplasia without lower urinary tract symptoms; I10 Essential (primary) hypertension; D50.9 Iron deficiency anemia, unspecified; F03.90 Unspecified dementia, unspecified severity, without behavioral disturbance, psychotic disturbance, mood disturbance, and anxiety; R07.81 Pleurodynia; R91.8 Other nonspecific abnormal finding of lung field; W18.39XA Other fall on same level, initial encounter; Y92.098 Other place in other non-institutional residence as the place of occurrence of the external cause; Z87.820 Personal history of traumatic brain injury
CPT/HCPCS: 32552; 32557; 36415; 71045-TC-FY; 71046-TC-FY; 71260-TC; 77012-TC; 80048; 80053; 82040; 83615; 85025; 85027; 85610; 86850; 86900; 86901; 87070; 87075; 87102; 87116; 87205; 87206; 87210; 87635; 93005; 93010; 94010; 97116-GP; 97161-GP; 99285-25; C1729; C1769; J1756; Q9967

== ENCOUNTER 2024-01-06 14:01 | Emergency (ER) | payer OTHER ==
[2024-01-06 14:23] VITALS: BP 110/66; PULSE 100; RESP 22; TEMP 98.5; BMI 29.8
[2024-01-06] MEDS ORDERED: ACETAMINOPHEN 325 MG TABLET (FP) ONE (16:00)
[2024-01-06] MEDS: ACETAMINOPHEN 500 MG TABLET (FP) PO ONE (16:06)
== END 2024-01-06 19:19 | disposition home or self-care (01) ==
LOC: JER 14:01
DX: S20.211A Contusion of right front wall of thorax, initial encounter (principal); W01.198A Fall on same level from slipping, tripping and stumbling with subsequent striking against other object, initial encounter
CPT/HCPCS: 71046-TC-FY; 71101-TC-RT-FY; 99284-25

== ENCOUNTER 2024-05-20 11:44 | Inpatient (IN) | payer OTHER ==
[2024-05-20] MEDS ORDERED: KETOROLAC TROMETHAMINE 15 MG/ML VIAL ONE (12:30)
[2024-05-20] MEDS: KETOROLAC TROMETHAMINE 15 MG/ML VIAL IVPUSH ONE (12:47)
[2024-05-20] MEDS ORDERED: DIPHTH,PERTUSS(ACELL),TET 0.5 ML DISP.SYRIN IM ONE (12:50)
[2024-05-20] MEDS ORDERED: ACETAMINOPHEN INJECTION 100 ML ONE (12:50)
[2024-05-20] MEDS: ACETAMINOPHEN 1000 MG/100 ML BAG IVPB ONE (12:58)
[2024-05-20] MEDS: DIPHTH,PERTUSS(ACELL),TET 0.5 ML DISP.SYRIN IM ONE (12:58)
[2024-05-20 13:17] LABS: HEMATOCRIT 23.5 % (40.1-51.0); HEMOGLOBIN 6.5 g/dL (13.7-17.5); MCHC 27.7 g/dl (32.3-36.5); MEAN CELL VOLUME 80.8 fl (79.0-92.2); MEAN PLT VOLUME 10.2 fl (9.4-12.4); PLATELET COUNT 171 x10^3/uL (163-337); RDW 16.5 % (12.2-16.4)
[2024-05-20 13:26] LABS: INR 1.13 (0.83-1.09); PROTHROMBIN TIME (PATIENT) 12.4 SEC (9.7-13.0)
[2024-05-20 13:29] LABS: ACTIVATED PTT 25.3 SECONDS (25.2-36.5)
[2024-05-20 13:51] LABS: POTASSIUM 3.8 mmol/L (3.5-5.1)
[2024-05-20 13:53] LABS: ALBUMIN 2.9 g/dl (3.4-5.0); CALCIUM 8.3 mg/dL (8.5-10.1)
[2024-05-20 13:57] LABS: CREATININE 0.8 mg/dL (0.55-1.3)
[2024-05-20 13:58] LABS: BILIRUBIN,TOTAL 0.3 mg/dL (0.2-1)
[2024-05-20 13:59] LABS: TOT PROT 5.8 g/dl (6.4-8.2)
[2024-05-20] MEDS ORDERED: HYDROmorphone HCL CARPU-JECT 2 MG/1 ML DISP.SYRIN ONE (15:31)
[2024-05-20] MEDS ORDERED: CEFAZOLIN 1 GM/D5W 1 GM/50 ML BAG ONE (15:32)
[2024-05-20] MEDS: CEFAZOLIN 1 GM in DEXTROSE 5%-WATER - 50 ML IVPB ONE (16:12)
[2024-05-20] MEDS: HYDROmorphone HCl 2 MG/ML VIAL IVPUSH ONE (16:12)
[2024-05-20 23:04] VITALS: BMI 33.3
[2024-05-21] MEDS: ACETAMINOPHEN 1000 MG/100 ML BAG IVPB SCH (00:22)
[2024-05-21 00:24] LABS: HCV DIAGNOSTIC IN-HOUSE W/RFLX NON-REACTIVE (NONREACTIVE)
[2024-05-21 00:25] LABS: HIV INTERPRETATION NEGATIVE (NEGATIVE)
[2024-05-21] MEDS: HYDROmorphone HCL CARPU-JECT 2 MG/1 ML DISP.SYRIN IVPUSH ONE (02:22)
[2024-05-21] MEDS: HYDROmorphone HCl 2 MG/ML VIAL IVPUSH ONE (02:24)
[2024-05-21 09:00] LABS: ABSOLUTE IMMATURE GRANULOCYTES 0.02 x10^3/uL (0.0-0.031); BASOPHILS # 0.02 x10^3/uL (0.01-0.08); EOSINOPHIL % 2.2 % (0.8-7.0); HEMATOCRIT 24.6 % (40.1-51.0); HEMOGLOBIN 7.1 g/dL (13.7-17.5); MCHC 28.9 g/dl (32.3-36.5); MEAN CELL VOLUME 78.8 fl (79.0-92.2); MEAN PLT VOLUME 11.2 fl (9.4-12.4); MONOCYTE # 0.43 x10^3/uL (0.30-0.82); MONOCYTE % 9.6 % (5.3-12.2); PLATELET COUNT 188 x10^3/uL (163-337)
[2024-05-21 09:26] LABS: POTASSIUM 4.2 mmol/L (3.5-5.1)
[2024-05-21 09:29] LABS: BLOOD UREA NITROGEN 10.8 mg/dL (7-18); CALCIUM 8.2 mg/dL (8.5-10.1)
[2024-05-21 09:33] LABS: CREATININE 0.7 mg/dL (0.55-1.3); PHOSPHOROUS 3.4 mg/dL (2.5-4.9)
[2024-05-21] MEDS: HYDROmorphone HCL CARPU-JECT 2 MG/1 ML DISP.SYRIN IVPUSH PRN (09:35)
[2024-05-21] MEDS ORDERED: POLYETHYLENE GLYCOL (HEALTHYLAX) 3350 17 GM PACKET PO PRN (09:43)
[2024-05-21] MEDS: THIAMINE 100 MG TABLET PO SCH (11:11)
[2024-05-21] MEDS: FERROUS SO4 325 MG TABLET (FP) PO SCH (11:11)
[2024-05-21] MEDS: OXYBUTYNIN CHLORIDE 5 MG TABLET PO SCH (11:11)
[2024-05-21 11:23] LABS: Reticulocyte % 1.56 % (0.51-1.81)
[2024-05-21] MEDS: FOLIC ACID 1 MG TABLET (FP) PO SCH ×2 (16:06→16:35)
[2024-05-21 16:10] LABS: HEMATOCRIT 27.7 % (40.1-51.0); HEMOGLOBIN 8.1 g/dL (13.7-17.5); MCHC 29.2 g/dl (32.3-36.5); MEAN CELL VOLUME 79.4 fl (79.0-92.2); PLATELET COUNT 173 x10^3/uL (163-337); RDW 16.1 % (12.2-16.4)
[2024-05-21 16:41] LABS: POTASSIUM 4.2 mmol/L (3.5-5.1)
[2024-05-21 16:42] LABS: CALCIUM 8.5 mg/dL (8.5-10.1)
[2024-05-21 16:45] LABS: CREATININE 0.7 mg/dL (0.55-1.3)
[2024-05-21] MEDS: MELATONIN 5 MG TABLETS PO SCH (21:19)
[2024-05-21] MEDS: BISACODYL 5 MG TABLET.DR (FP) PO SCH (21:20)
[2024-05-21] MEDS: traZODone HCL 100 MG TABLET (FP) PO SCH (21:20)
[2024-05-21] MEDS: OLANZapine 10 MG TABLET PO SCH (21:20)
[2024-05-21] MEDS: TAMSULOSIN HCL 0.4 MG CAP PO SCH (21:20)
[2024-05-21] MEDS: DOCUSATE SODIUM 100 MG CAPSULE (FP) PO SCH (21:20)
[2024-05-22] MEDS: PANTOPRAZOLE 20 MG TABLET PO SCH (06:11)
[2024-05-22 08:56] LABS: ABSOLUTE IMMATURE GRANULOCYTES 0.02 x10^3/uL (0.0-0.031); BASOPHILS # 0.03 x10^3/uL (0.01-0.08); EOSINOPHIL % 2.4 % (0.8-7.0); EOSINOPHILS # 0.16 x10^3/uL (0.04-0.54); HEMATOCRIT 28.4 % (40.1-51.0); HEMOGLOBIN 8.4 g/dL (13.7-17.5); MCHC 29.6 g/dl (32.3-36.5); MEAN CELL VOLUME 79.1 fl (79.0-92.2); MEAN PLT VOLUME 9.8 fl (9.4-12.4); MONOCYTE # 0.69 x10^3/uL (0.30-0.82); MONOCYTE % 10.2 % (5.3-12.2); PLATELET COUNT 180 x10^3/uL (163-337); RDW 16.1 % (12.2-16.4)
[2024-05-22 09:12] LABS: POTASSIUM 4.2 mmol/L (3.5-5.1)
[2024-05-22 09:14] LABS: CALCIUM 8.8 mg/dL (8.5-10.1)
[2024-05-22 09:18] LABS: CREATININE 0.7 mg/dL (0.55-1.3)
[2024-05-22] MEDS: oxyCODONE HCL 5 MG TABLET PO PRN (11:37)
[2024-05-22 15:10] LABS: Reticulocyte % 2.14 % (0.51-1.81)
[2024-05-22] MEDS ORDERED: ACETAMINOPHEN 325 MG TABLET (FP) PO PRN (15:33)
[2024-05-23] MEDS ORDERED: LIDOCAINE HCL 2% (20ML MULTI-DOSE VIAL) ONE (08:16)
[2024-05-23] MEDS ORDERED: ROCURONIUM BROMIDE 50 MG/5 ML SYRINGE ONE ×2 (08:45→09:40)
[2024-05-23] MEDS ORDERED: SUCCINYLCHOLINE CHLORIDE 200 MG/10 ML SYRINGE ONE ×2 (08:45→12:52)
[2024-05-23] MEDS ORDERED: ceFAZolin SODIUM 1 GM VIAL ONE (09:20)
[2024-05-23] MEDS ORDERED: TRANEXAMIC ACID 1000 MG/10 ML VIAL ONE (09:20)
[2024-05-23] MEDS: ceFAZolin SODIUM 1 GM VIAL IVPB ONE (09:23)
[2024-05-23] MEDS ORDERED: LIDOCAINE 1%/EPI 1:100000 (20 ML MULTI DOSE VIAL) ONE (09:46)
[2024-05-23] MEDS: LIDOCAINE 1%/EPI 1:100000 (50 ML MULTI DOSE VIAL) INF ONE (11:31)
[2024-05-23] MEDS ORDERED: VANCOMYCIN 1,000 MG VIAL (RESTRICTED TO ID ONLY) ONE (12:13)
[2024-05-23] MEDS ORDERED: SUGAMMADEX SODIUM 200 MG/2 ML VIAL ONE (12:46)
[2024-05-23] MEDS ORDERED: POLYETHYLENE GLYCOL (HEALTHYLAX) 3350 17 GM PACKET PO PRN (13:11)
[2024-05-23] MEDS ORDERED: ACETAMINOPHEN 325 MG TABLET (FP) PO PRN (13:11)
[2024-05-23] MEDS: LACTATED RINGERS SOLUTION 1,000 ML IV SCH (14:46)
[2024-05-23 16:04] LABS: HEMATOCRIT 31.3 % (40.1-51.0); HEMOGLOBIN 9.3 g/dL (13.7-17.5); MCHC 29.7 g/dl (32.3-36.5); MEAN CELL VOLUME 81.1 fl (79.0-92.2); MEAN PLT VOLUME 10.3 fl (9.4-12.4); PLATELET COUNT 210 x10^3/uL (163-337); RDW 16.3 % (12.2-16.4)
[2024-05-23 16:26] LABS: POTASSIUM 4.6 mmol/L (3.5-5.1)
[2024-05-23 16:28] LABS: ALBUMIN 2.6 g/dl (3.4-5.0); BLOOD UREA NITROGEN 19.4 mg/dL (7-18); CALCIUM 8.6 mg/dL (8.5-10.1)
[2024-05-23 16:31] LABS: CREATININE 0.7 mg/dL (0.55-1.3)
[2024-05-23 16:33] LABS: TOT PROT 5.3 g/dl (6.4-8.2)
[2024-05-23] MEDS: CEFAZOLIN 1 GM/D5W 1 GM/50 ML BAG IVPB SCH (17:31)
[2024-05-23] MEDS: FERROUS SO4 325 MG TABLET (FP) PO SCH (17:31)
[2024-05-23] MEDS: HYDROmorphone HCL CARPU-JECT 2 MG/1 ML DISP.SYRIN IVPUSH PRN (20:16)
[2024-05-23] MEDS: MELATONIN 5 MG TABLETS PO SCH (21:33)
[2024-05-23] MEDS: traZODone HCL 100 MG TABLET (FP) PO SCH (21:33)
[2024-05-23] MEDS: DOCUSATE SODIUM 100 MG CAPSULE (FP) PO SCH (21:33)
[2024-05-23] MEDS: OLANZapine 10 MG TABLET PO SCH (21:33)
[2024-05-23] MEDS: TAMSULOSIN HCL 0.4 MG CAP PO SCH (21:34)
[2024-05-23] MEDS: BISACODYL 5 MG TABLET.DR (FP) PO SCH (21:34)
[2024-05-24] MEDS: oxyCODONE HCL 5 MG TABLET PO PRN (02:58)
[2024-05-24] MEDS: PANTOPRAZOLE 20 MG TABLET PO SCH (06:01)
[2024-05-24 09:07] LABS: ABSOLUTE IMMATURE GRANULOCYTES 0.05 x10^3/uL (0.0-0.031); EOSINOPHIL % 0.1 % (0.8-7.0); EOSINOPHILS # 0.01 x10^3/uL (0.04-0.54); HEMATOCRIT 29.5 % (40.1-51.0); HEMOGLOBIN 8.8 g/dL (13.7-17.5); MCHC 29.8 g/dl (32.3-36.5); MEAN CELL VOLUME 80.4 fl (79.0-92.2); MEAN PLT VOLUME 10.7 fl (9.4-12.4); MONOCYTE # 0.77 x10^3/uL (0.30-0.82); MONOCYTE % 9.2 % (5.3-12.2); PLATELET COUNT 240 x10^3/uL (163-337); RDW 16.9 % (12.2-16.4)
[2024-05-24 09:28] LABS: POTASSIUM 4.2 mmol/L (3.5-5.1)
[2024-05-24 09:35] LABS: ALBUMIN 2.4 g/dl (3.4-5.0); BLOOD UREA NITROGEN 15.4 mg/dL (7-18); CALCIUM 8.1 mg/dL (8.5-10.1)
[2024-05-24 09:37] LABS: CREATININE 0.7 mg/dL (0.55-1.3)
[2024-05-24 09:39] LABS: BILIRUBIN,TOTAL 1.1 mg/dL (0.2-1); TOT PROT 5.4 g/dl (6.4-8.2)
[2024-05-24] MEDS: FOLIC ACID 1 MG TABLET (FP) PO SCH (10:20)
[2024-05-24] MEDS: OXYBUTYNIN CHLORIDE 5 MG TABLET PO SCH (10:20)
[2024-05-24] MEDS: THIAMINE 100 MG TABLET PO SCH (10:20)
[2024-05-25] MEDS: LISINOPRIL 10 MG TABLET PO SCH (09:35)
[2024-05-25] MEDS: FLUoxetine HCL 20 MG CAPSULE PO SCH (09:35)
[2024-05-25 09:44] LABS: POTASSIUM 4.1 mmol/L (3.5-5.1)
[2024-05-25 09:46] LABS: CALCIUM 8.3 mg/dL (8.5-10.1)
[2024-05-25 09:50] LABS: CREATININE 0.7 mg/dL (0.55-1.3)
[2024-05-25 10:44] LABS: ABSOLUTE IMMATURE GRANULOCYTES 0.03 x10^3/uL (0.0-0.031); BASOPHILS # 0.04 x10^3/uL (0.01-0.08); EOSINOPHIL % 1.5 % (0.8-7.0); EOSINOPHILS # 0.11 x10^3/uL (0.04-0.54); HEMATOCRIT 30.1 % (40.1-51.0); HEMOGLOBIN 8.8 g/dL (13.7-17.5); MCHC 29.2 g/dl (32.3-36.5); MEAN CELL VOLUME 82.7 fl (79.0-92.2); MEAN PLT VOLUME 10.8 fl (9.4-12.4); MONOCYTE # 0.59 x10^3/uL (0.30-0.82); PLATELET COUNT 243 x10^3/uL (163-337); RDW 17.7 % (12.2-16.4)
[2024-05-25] MEDS ORDERED: ACETAMINOPHEN 1000 MG/100 ML BAG IVPB PRN (13:05)
[2024-05-25] MEDS: SODIUM CHLORIDE 500 ML IV STA ×4 (13:57→23:20)
[2024-05-25] MEDS: ACETAMINOPHEN 1000 MG/100 ML BAG IVPB SCH (13:59)
[2024-05-25] MEDS: traZODone HCL 100 MG TABLET (FP) PO SCH (21:09)
[2024-05-25] MEDS: IBUPROFEN 400 MG TABLET (FP) PO PRN (21:09)
[2024-05-25] MEDS: MIDODRINE HCL 5 MG TABLET PO ONE (23:19)
[2024-05-26] MEDS: PIPERACILLIN/TAZOB 3.375 GM 3.375 GM in DEXTROSE 5%-WATER - 50 ML IVPB ONE (00:54)
[2024-05-26] MEDS: SODIUM CHLORIDE 1,000 ML IV STA (00:54)
[2024-05-26] MEDS: VANCOMYCIN/WATER FOR INJ (PEG) 1,000 MG/200 ML BAG IVPB ONE (02:21)
[2024-05-26 05:43] LABS: PH,URINE 5.5 (5.0-8.0); URINE APPEARANCE CLEAR; URINE BILIRUBIN NEGATIVE (NEGATIVE); URINE COLOR YELLOW; URINE GLUCOSE (UA) NEGATIVE (NEGATIVE); URINE KETONE NEGATIVE (NEGATIVE); URINE LEUK ESTERASE NEGATIVE (NEGATIVE); URINE NITRITE NEGATIVE (NEGATIVE); URINE PROTEIN NEGATIVE (NEGATIVE)
[2024-05-26 09:30] LABS: ABSOLUTE IMMATURE GRANULOCYTES 0.02 x10^3/uL (0.0-0.031); BASOPHILS # 0.03 x10^3/uL (0.01-0.08); EOSINOPHIL % 2.7 % (0.8-7.0); EOSINOPHILS # 0.14 x10^3/uL (0.04-0.54); HEMATOCRIT 24.5 % (40.1-51.0); HEMOGLOBIN 6.9 g/dL (13.7-17.5); MCHC 28.2 g/dl (32.3-36.5); MEAN CELL VOLUME 84.2 fl (79.0-92.2); MONOCYTE % 9.6 % (5.3-12.2); PLATELET COUNT 189 x10^3/uL (163-337); RDW 17.9 % (12.2-16.4)
[2024-05-26] MEDS ORDERED: MIDODRINE HCL 5 MG TABLET PO SCH (10:00)
[2024-05-26 12:30] LABS: ABSOLUTE IMMATURE GRANULOCYTES 0.02 x10^3/uL (0.0-0.031); BASOPHILS # 0.02 x10^3/uL (0.01-0.08); EOSINOPHIL % 3.1 % (0.8-7.0); EOSINOPHILS # 0.15 x10^3/uL (0.04-0.54); HEMATOCRIT 25.5 % (40.1-51.0); HEMOGLOBIN 7.5 g/dL (13.7-17.5); MCHC 29.4 g/dl (32.3-36.5); MEAN CELL VOLUME 83.9 fl (79.0-92.2); MONOCYTE % 6.1 % (5.3-12.2); PLATELET COUNT 199 x10^3/uL (163-337)
[2024-05-27 08:54] LABS: ABSOLUTE IMMATURE GRANULOCYTES 0.01 x10^3/uL (0.0-0.031); BASOPHILS # 0.02 x10^3/uL (0.01-0.08); EOSINOPHIL % 3.2 % (0.8-7.0); EOSINOPHILS # 0.13 x10^3/uL (0.04-0.54); HEMATOCRIT 22.9 % (40.1-51.0); HEMOGLOBIN 6.6 g/dL (13.7-17.5); MCHC 28.8 g/dl (32.3-36.5); MEAN CELL VOLUME 82.7 fl (79.0-92.2); MEAN PLT VOLUME 10.7 fl (9.4-12.4); MONOCYTE % 7.5 % (5.3-12.2); PLATELET COUNT 192 x10^3/uL (163-337); RDW 17.8 % (12.2-16.4)
[2024-05-27 09:17] LABS: CALCIUM 8.1 mg/dL (8.5-10.1); POTASSIUM 3.7 mmol/L (3.5-5.1)
[2024-05-27 09:18] LABS: BLOOD UREA NITROGEN 21.1 mg/dL (7-18)
[2024-05-27 09:21] LABS: CREATININE 0.6 mg/dL (0.55-1.3)
[2024-05-27] MEDS: oxyCODONE HCL 5 MG TABLET PO PRN (10:09)
[2024-05-27] MEDS: SODIUM CHLORIDE 1,000 ML IV STA (16:52)
[2024-05-27 18:29] LABS: ABSOLUTE IMMATURE GRANULOCYTES 0.02 x10^3/uL (0.0-0.031); BASOPHILS # 0.03 x10^3/uL (0.01-0.08); EOSINOPHILS # 0.14 x10^3/uL (0.04-0.54); HEMATOCRIT 25.4 % (40.1-51.0); HEMOGLOBIN 7.6 g/dL (13.7-17.5); MCHC 29.9 g/dl (32.3-36.5); MEAN CELL VOLUME 83.3 fl (79.0-92.2); MEAN PLT VOLUME 10.2 fl (9.4-12.4); MONOCYTE # 0.37 x10^3/uL (0.30-0.82); PLATELET COUNT 190 x10^3/uL (163-337); RDW 17.1 % (12.2-16.4)
[2024-05-27] MEDS: PANTOPRAZOLE SODIUM 40 MG VIAL IVPUSH SCH (21:55)
[2024-05-28 09:28] LABS: ABSOLUTE IMMATURE GRANULOCYTES 0.02 x10^3/uL (0.0-0.031); BASOPHILS # 0.01 x10^3/uL (0.01-0.08); EOSINOPHIL % 3.1 % (0.8-7.0); EOSINOPHILS # 0.12 x10^3/uL (0.04-0.54); HEMATOCRIT 24.3 % (40.1-51.0); HEMOGLOBIN 7.3 g/dL (13.7-17.5); MEAN CELL VOLUME 83.8 fl (79.0-92.2); MEAN PLT VOLUME 10.2 fl (9.4-12.4); MONOCYTE % 7.9 % (5.3-12.2); PLATELET COUNT 163 x10^3/uL (163-337); RDW 16.8 % (12.2-16.4)
[2024-05-28 09:31] LABS: INR 1.17 (0.83-1.09); PROTHROMBIN TIME (PATIENT) 12.9 SEC (9.7-13.0)
[2024-05-28 09:52] LABS: POTASSIUM 3.7 mmol/L (3.5-5.1)
[2024-05-28 10:15] LABS: CALCIUM 8.1 mg/dL (8.5-10.1)
[2024-05-28 10:16] LABS: BLOOD UREA NITROGEN 16.1 mg/dL (7-18)
[2024-05-28 10:18] LABS: CREATININE 0.6 mg/dL (0.55-1.3)
[2024-05-28 10:20] LABS: TOT PROT 4.7 g/dl (6.4-8.2)
[2024-05-28] MEDS ORDERED: LIDOCAINE VISCOUS 2% ORAL/TOP 15 ML UNIT-DOSE CUP ONE (10:37)
[2024-05-28] MEDS ORDERED: MIDAZOLAM HCL 2 MG/2 ML SINGLE DOSE VIAL ONE (10:42)
[2024-05-28] MEDS: PANTOPRAZOLE 40 MG TABLET PO SCH (21:28)
[2024-05-30 19:28] VITALS: RESP 18
[2024-05-31 10:11] LABS: ABSOLUTE IMMATURE GRANULOCYTES 0.04 x10^3/uL (0.0-0.031); BASOPHILS # 0.03 x10^3/uL (0.01-0.08); EOSINOPHIL % 2.2 % (0.8-7.0); HEMATOCRIT 27.3 % (40.1-51.0); MCHC 29.3 g/dl (32.3-36.5); MEAN PLT VOLUME 9.4 fl (9.4-12.4); MONOCYTE # 0.37 x10^3/uL (0.30-0.82); MONOCYTE % 8.1 % (5.3-12.2); PLATELET COUNT 212 x10^3/uL (163-337); RDW 17.9 % (12.2-16.4)
[2024-05-31 13:33] LABS: ALBUMIN 2.2 g/dl (3.4-5.0); BILIRUBIN,TOTAL 0.6 mg/dL (0.2-1); BLOOD UREA NITROGEN 11.7 mg/dL (7-18); CALCIUM 8.2 mg/dL (8.5-10.1); CREATININE 0.7 mg/dL (0.55-1.3); POTASSIUM 3.9 mmol/L (3.5-5.1); TOT PROT 5.4 g/dl (6.4-8.2)
[2024-05-31] MEDS ORDERED: FUROSEMIDE 40 MG/4 ML INJECTABLE VIAL IVPUSH ONE (16:42)
[2024-06-01 08:58] LABS: ABSOLUTE IMMATURE GRANULOCYTES 0.02 x10^3/uL (0.0-0.031); BASOPHILS # 0.02 x10^3/uL (0.01-0.08); EOSINOPHIL % 1.9 % (0.8-7.0); EOSINOPHILS # 0.09 x10^3/uL (0.04-0.54); HEMATOCRIT 27.5 % (40.1-51.0); HEMOGLOBIN 8.1 g/dL (13.7-17.5); MCHC 29.5 g/dl (32.3-36.5); MEAN CELL VOLUME 85.4 fl (79.0-92.2); MEAN PLT VOLUME 10.6 fl (9.4-12.4); MONOCYTE # 0.38 x10^3/uL (0.30-0.82); PLATELET COUNT 255 x10^3/uL (163-337); RDW 18.1 % (12.2-16.4)
[2024-06-01 11:19] VITALS: BP 116/68; PULSE 88; TEMP 98.1
== END 2024-06-01 11:36 | DRG 493 ==
LOC: JER 11:44 → JERBED 18:44 → J5S 22:23
PROVIDERS: ADMIT Hospitalist; ATTEND Internal Medicine
PROC: 30233N1 Transfusion of Nonautologous Red Blood Cells into Peripheral Vein, Percutaneous Approach (ICD-10-PCS; 2024-05-20)
PROC: 0PSF04Z Reposition Right Humeral Shaft with Internal Fixation Device, Open Approach (ICD-10-PCS; principal; 2024-05-23 08:21)
PROC: 0DJ08ZZ Inspection of Upper Intestinal Tract, Via Natural or Artificial Opening Endoscopic (ICD-10-PCS; 2024-05-28)
DX: S42.351A Displaced comminuted fracture of shaft of humerus, right arm, initial encounter for closed fracture (principal); D62 Acute posthemorrhagic anemia; K92.1 Melena; S02.2XXA Fracture of nasal bones, initial encounter for closed fracture; I10 Essential (primary) hypertension; K21.9 Gastro-esophageal reflux disease without esophagitis; F03.90 Unspecified dementia, unspecified severity, without behavioral disturbance, psychotic disturbance, mood disturbance, and anxiety; F39 Unspecified mood [affective] disorder; N40.0 Benign prostatic hyperplasia without lower urinary tract symptoms; I95.81 Postprocedural hypotension; F31.9 Bipolar disorder, unspecified; M25.511 Pain in right shoulder; F20.9 Schizophrenia, unspecified; I45.10 Unspecified right bundle-branch block; K59.00 Constipation, unspecified; W01.0XXA Fall on same level from slipping, tripping and stumbling without subsequent striking against object, initial encounter; Y93.9 Activity, unspecified; Y92.89 Other specified places as the place of occurrence of the external cause; Y99.9 Unspecified external cause status
CPT/HCPCS: 36415; 36430; 70450-TC; 70486-TC; 71045-TC-FY; 72125-TC; 72170-TC-FY; 73030-TC-RT-FY; 73060-TC-RT-FY; 73070-TC-RT-FY; 73090-TC-RT-FY; 73110-TC-RT-FY; 73130-TC-LT-FY; 73130-TC-RT-FY; 76000-TC-FY; 80048; 80053; 81003; 82272; 82728; 82962; 83540; 83550; 83615; 83735; 84100; 85025; 85027; 85610; 85730; 86803; 86850; 86900; 86901; 86922; 87040; 87389; 90715; 93005; 93010; 94010; 94760; 97116-GP; 97162-GP; 99285-25; C1713; J0131; P9058